=== PATIENT | male | born 1935 | race Asian ===

== ENCOUNTER 2017-10-01 16:32 | Inpatient (IN) | payer OTHER, MEDICAID ==
[2017-10-01] MEDS ORDERED: ASPIRIN 81 MG CHEWABLE TAB PO ONE (16:54)
[2017-10-01] MEDS ORDERED: NITROGLYCERIN 0.4 MG BTL SL PRN (16:54)
[2017-10-01] MEDS ORDERED: FUROSEMIDE 40 MG/4 ML VIAL IVP ONE (16:55)
--- NOTE | 2017-10-01 16:57 | EDPHY ---
H & P Stated Complaint: PT. SOB x2 days per son. Exertional dyspnea,increased edema to ft Time Seen by Provider: 10/01/17 16:48 HPI/ROS: CHIEF COMPLAINT: Shortness of breath HISTORY OF PRESENT ILLNESS: The patient is an 82-year-old man who comes to the emergency department complaining of increasing shortness of breath over the last 3 days as well as leg swelling. No fever. No cough. He has a history of 3 vessel CABG 4 years ago and was recently started on Lasix 120 mg per day by his primary for leg swelling. He also has a history of renal insufficiency and diabetes. He is not on a blood thinner. No history of pulmonary disease. He states his breathing is worse when he lays flat. He is saturating 96% on room air. REVIEW OF SYSTEMS: Constitutional: denies: chills, fever, recent illness, recent injury EENTM: denies: blurred vision, double vision, nose congestion Respiratory: See HPI denies: cough Cardiac: denies: chest pain, irregular heart rate, lightheadedness, palpitations Gastrointestinal/Abdominal: denies: abdominal pain, diarrhea, nausea, vomiting, blood streaked stools Genitourinary: denies: dysuria, frequency, hematuria, pain Musculoskeletal: denies: joint pain, muscle pain Skin: denies: lesions, rash, jaundice, bruising Neurological: denies: headache, numbness, paresthesia, tingling, dizziness, weakness Hematologic/Lymphatic: denies: blood clots, easy bleeding, easy bruising Immunologic/allergic: denies: HIV/AIDS, transplant EXAM: GENERAL: Well-appearing, well-nourished and in no acute distress. HEAD: Atraumatic, normocephalic. EYES: Pupils equal round and reactive to light, extraocular movements intact, sclera anicteric, conjunctiva are normal. ENT: TMs normal, nares patent, oropharynx clear without exudates. Moist mucous membranes. NECK: Normal range of motion, supple without lymphadenopathy or JVD. LUNGS: Mild crackles of both bases. HEART: Regular rate and rhythm without murmurs, rubs or gallops. ABDOMEN: Soft, nontender, normoactive bowel sounds. No guarding, no rebound. No masses appreciated. BACK: No CVA tenderness, no spinal tenderness, step-offs or deformities EXTREMITIES: Normal range of motion, no pitting or edema. No clubbing or cyanosis. NEUROLOGICAL: Cranial nerves II through XII grossly intact. Normal speech, normal gait. 5/5 strength, normal movement in all extremities, normal sensation PSYCH: Normal mood, normal affect. SKIN: Warm, dry, normal turgor, no visible rashes or lesions. Source: Patient Exam Limitations: Language barrier (Son interpreting) - Medical/Surgical History Hx Asthma: Yes Hx Chronic Respiratory Disease: No Hx Diabetes: Yes Hx Cardiac Disease: Yes Hx Renal Disease: Yes Hx Cirrhosis: No Hx Alcoholism: No Hx HIV/AIDS: No Hx Splenectomy or Spleen Trauma: No Other PMH: DM2, asthma, kidney decline, htn, hyperlipidemia. CABG - Family History Significant Family History: No pertinent family hx - Social History Smoking Status: Former smoker Alcohol Use: None Constitutional: Initial Vital Signs Temperature (C) 36.7 C 10/01/17 16:41 Heart Rate 73 10/01/17 16:41 Respiratory Rate 24 H 10/01/17 16:41 Blood Pressure 157/85 H 10/01/17 16:41 O2 Sat (%) 96 10/01/17 16:41 O2 Delivery Mode Nasal Cannula O2 (L/minute) 2 Allergies/Adverse Reactions: No Known Allergies Allergy (Verified 10/01/17 16:39) Home Medications: Medication Instructions Recorded amLODIPine BESYLATE [Norvasc 5 mg 5 mg PO BID 12/05/15 (*)] Allopurinol [Allopurinol 100 MG 100 mg PO DAILY 10/01/17 (*)] Furosemide [Lasix 40 MG (*)] 40 mg PO DAILY 10/01/17 Insulin NPH Human Isophane 10 unit SQ DAILY@18 10/01/17 [Humulin N] Insulin NPH Human Isophane 15 unit SQ BID@08,12 10/01/17 [Humulin N] Metoprolol Tartrate [Lopressor 25 25 mg PO BID 10/01/17 mg (*)] glipiZIDE [Glucotrol] 5 mg PO BID 10/01/17 Medical Decision Making - Diagnostics EKG Interpretation: An EKG obtained and was read and documented in trace view. Please see trace view for full reading and report. Sinus rhythm, no acute ischemic changes Imaging Results: Imaging Impressions Chest X-Ray 10/01/17 16:54 Impression: 1. Findings suggestive of mild CHF. Imaging: Discussed imaging studies w/ house calls nurse practitioner Radiologist ED Course/Re-evaluation: We discussed the test results. The patient is feeling better after Lasix and nitroglycerin. His vital signs remained stable. Will admit to the hospital service. Discussed the case with Dr. Jewel Ha who accepted. Differential Diagnosis: Partial list of the Differential diagnosis considered include but were not limited to; CHF, pneumonia and although unlikely based on the history and physical exam, I also considered acute coronary disease, dissection, aneurysm. Critical Care Time: Critical care time spent by me, Dr. Savage exclusive with this patient was 45 minutes, exclusive of the PA time exclusive of procedures. The organ system that was at risk was cardiovascular and I gave medications, diagnosis, treatment and admission to prevent worsening of the patient's condition - Data Points Laboratory Results: Laboratory Results 10/01/17 17:50 10/01/17 17:50 10/01/17 10/01/17 10/01/17 17:50 17:50 17:50 WBC 7.43 10^3/uL 10^3/uL (3.80-9.50) RBC 3.70 10^6/uL L 10^6/uL (4.40-6.38) Hgb 10.9 g/dL L g/dL (13.7-17.5) Hct 32.5 % L % (40.0-51.0) MCV 87.8 fL fL (81.5-99.8) MCH 29.5 pg pg (27.9-34.1) MCHC 33.5 g/dL g/dL (32.4-36.7) RDW 14.0 % % (11.5-15.2) Plt Count 141 10^3/uL L 10^3/uL (150-400) MPV 10.3 fL fL (8.7-11.7) Neut % (Auto) 74.0 % % (39.3-74.2) Lymph % (Auto) 9.2 % L % (15.0-45.0) [place] % (Auto) 12.7 % % (4.5-13.0) Eos % (Auto) 3.2 % % (0.6-7.6) Baso % (Auto) 0.4 % % (0.3-1.7) Nucleat RBC Rel Count 0.0 % % (0.0-0.2) Absolute Neuts (auto) 5.50 10^3/uL 10^3/uL (1.70-6.50) Absolute Lymphs (auto) 0.68 10^3/uL L 10^3/uL (1.00-3.00) Absolute Monos (auto) 0.94 10^3/uL H 10^3/uL (0.30-0.80) Absolute Eos (auto) 0.24 10^3/uL 10^3/uL (0.03-0.40) Absolute Basos (auto) 0.03 10^3/uL 10^3/uL (0.02-0.10) Absolute Nucleated RBC 0.00 10^3/uL 10^3/uL (0-0.01) Immature Gran % 0.5 % % (0.0-1.1) Immature Gran # 0.04 10^3/uL 10^3/uL (0.00-0.10) PT 14.4 SEC SEC (12.0-15.0) INR 1.13 (0.83-1.16) APTT 37.2 SEC SEC (23.0-38.0) Sodium 136 mEq/L mEq/L (135-145) Potassium 5.1 mEq/L mEq/L (3.5-5.2) Chloride 102 mEq/L mEq/L (97-110) Carbon Dioxide 20 mEq/l L mEq/l (22-31) Anion Gap 14 mEq/L mEq/L (8-16) BUN 74 mg/dL H mg/dL (7-23) Creatinine 4.3 mg/dL H mg/dL (0.7-1.3) Estimated GFR 13 Glucose 126 mg/dL H mg/dL (70-100) Calcium 8.8 mg/dL mg/dL (8.5-10.4) Total Bilirubin 0.9 mg/dL mg/dL (0.1-1.4) Conjugated Bilirubin 0.6 mg/dL H mg/dL (0.0-0.5) Unconjugated Bilirubin 0.3 mg/dL mg/dL (0.0-1.1) AST 31 IU/L IU/L (17-59) ALT 40 IU/L IU/L (21-72) Alkaline Phosphatase 141 IU/L H IU/L (38-126) Troponin I 0.097 ng/mL H ng/mL (0.000-0.034) NT-Pro-B Natriuret Pep 6380 pg/mL H pg/mL (0-450) Total Protein 6.8 g/dL g/dL (6.3-8.2) Albumin 3.5 g/dL g/dL (3.5-5.0) Medications Given: Nitroglycerin (Nitrostat) 0.4 mg SL Q5M PRN PRN Reason: Chest Pain Last Admin: 10/01/17 18:06 Dose: 0.4 mg Discontinued Medications Aspirin (Aspirin) 324 mg PO EDNOW ONE Stop: 10/01/17 16:55 Last Admin: 10/01/17 17:10 Dose: 324 mg Furosemide (Lasix Injection) 40 mg IVP EDNOW ONE Stop: 10/01/17 16:56 Last Admin: 10/01/17 17:48 Dose: 40 mg Departure - Departure Disposition: [facility] Acute Clinical Impression: Pulmonary edema Condition: Fair
--- NOTE | 2017-10-01 17:00 | CPEKG ---
Heart Rate: 74 RR Interval: 811 P-R Interval: 184 QRSD Interval: 84 QT Interval: 412 QTC Interval: 457 P Raven: 60 QRS Raven: 49 T Wave Raven: 94 EKG Severity - ABNORMAL ECG - EKG Impression: SINUS RHYTHM EKG Impression: BORDERLINE R WAVE PROGRESSION, ANTERIOR LEADS EKG Impression: NONSPECIFIC T ABNORMALITIES, ANT-LAT LEADS Electronically Signed By: August Savage 01-Oct-2017 17:29:41
[2017-10-01 18:01] LABS: PLATELET COUNT 141 10^3/uL (150-400)
[2017-10-01 18:16] LABS: INR 1.13 (0.83-1.16); PROTIME(PATIENT) 14.4 SEC (12.0-15.0)
[2017-10-01] MEDS ORDERED: ONDANSETRON DISINTEGRATING 4 MG TAB PO PRN (22:26)
[2017-10-01] MEDS ORDERED: ONDANSETRON 4 MG/2 ML VIAL IVP PRN (22:26)
[2017-10-01] MEDS ORDERED: ACETAMINOPHEN 325 MG TAB PO PRN (22:26)
--- NOTE | 2017-10-01 23:17 | PDGENHP ---
History and Physical - Chief Complaint Shortness of breath - History of Present Illness 82 yo M w/ advanced CKD, CAD s/p CABG, dCHF, and HTN presents with shortness of breath. Turkish translation was provided by daughter, who refused inspector bicycle services. Patient has been experiencing labored breathing for 2-3 days. He also complains of mild leg swelling. He had a fistula procedure last week and since has had a slight rise in his creatinine, possibly due to JEWELS. Due to this the patient stopped taking his Lasix for the last week. [place] [facility] [place] with this feels quite improved after 900 mL urine output over the last few hours. He denies infectious symptoms. History Information - Allergies/Home Medication List Allergies/Adverse Reactions: No Known Allergies Allergy (Verified 10/01/17 16:39) Home Medications: amLODIPine BESYLATE [Norvasc 5 mg (*)] 5 mg PO BID 12/05/15 [Last Taken 09:00] Allopurinol [Allopurinol 100 MG (*)] 100 mg PO DAILY 10/01/17 [Last Taken ] Furosemide [Lasix 40 MG (*)] 40 mg PO DAILY 10/01/17 [Last Taken 09/24/17] Insulin NPH Human Isophane [Humulin N] 10 unit SQ DAILY@18 10/01/17 [Last Taken 09/30/17 18:00] Insulin NPH Human Isophane [Humulin N] 15 unit SQ BID@08,12 10/01/17 [Last Taken 10/01/17 12:00] Metoprolol Tartrate [Lopressor 25 mg (*)] 25 mg PO BID 10/01/17 [Last Taken 09:00] glipiZIDE [Glucotrol] 5 mg PO BID 10/01/17 [Last Taken 09/27/17] I have personally reviewed and updated: family history, medical history - Past Medical History coronary artery disease, hypertension Additional medical history: CKD, Stage 4-5 - Surgical History Reports: coronary bypass surgery - Family History Additional family history: Deny family hx of cardiovascular disease - Social History Smoking Status: Former smoker Alcohol Use: None Review of Systems Review of Systems: ROS: 10pt was reviewed & negative except for what was stated in HPI & below Physical Exam Physical Exam: Temp Pulse Resp BP Pulse Ox 36.5 C 69 22 H 150/63 H 95 10/01/17 21:18 10/01/17 21:18 10/01/17 21:18 10/01/17 21:18 10/01/17 21:18 O2 (L/minute) 2 Constitutional: no apparent distress, appears nourished Eyes: PERRL, EOMI Ears, Nose, Mouth, Throat: moist mucous membranes, no oral mucosal ulcers Cardiovascular: regular rate and rhythym, systolic murmur, JVD (7 cm above clavicle sitting upright), edema (1+ b/l XANDER) Respiratory: no respiratory distress, inspiratory crackles Gastrointestinal: normoactive bowel sounds, soft, non-tender abdomen Skin: warm, normal color Musculoskeletal: full muscle strength, no muscle tenderness Neurologic: AAOx3, CN II-XII Intact Psychiatric: interacting appropriately, not anxious Lab Data & Imaging Review 10/01/17 17:50 10/01/17 17:50 WBC 7.43 10^3/uL (3.80-9.50) 10/01/17 17:50 RBC 3.70 10^6/uL (4.40-6.38) L 10/01/17 17:50 Hgb 10.9 g/dL (13.7-17.5) L 10/01/17 17:50 Hct 32.5 % (40.0-51.0) L 10/01/17 17:50 MCV 87.8 fL (81.5-99.8) 10/01/17 17:50 MCH 29.5 pg (27.9-34.1) 10/01/17 17:50 MCHC 33.5 g/dL (32.4-36.7) 10/01/17 17:50 RDW 14.0 % (11.5-15.2) 10/01/17 17:50 Plt Count 141 10^3/uL (150-400) L 10/01/17 17:50 MPV 10.3 fL (8.7-11.7) 10/01/17 17:50 Neut % (Auto) 74.0 % (39.3-74.2) 10/01/17 17:50 Lymph % (Auto) 9.2 % (15.0-45.0) L 10/01/17 17:50 [place] % (Auto) 12.7 % (4.5-13.0) 10/01/17 17:50 Eos % (Auto) 3.2 % (0.6-7.6) 10/01/17 17:50 Baso % (Auto) 0.4 % (0.3-1.7) 10/01/17 17:50 Nucleat RBC Rel Count 0.0 % (0.0-0.2) 10/01/17 17:50 Absolute Neuts (auto) 5.50 10^3/uL (1.70-6.50) 10/01/17 17:50 Absolute Lymphs (auto) 0.68 10^3/uL (1.00-3.00) L 10/01/17 17:50 Absolute Monos (auto) 0.94 10^3/uL (0.30-0.80) H 10/01/17 17:50 Absolute Eos (auto) 0.24 10^3/uL (0.03-0.40) 10/01/17 17:50 Absolute Basos (auto) 0.03 10^3/uL (0.02-0.10) 10/01/17 17:50 Absolute Nucleated RBC 0.00 10^3/uL (0-0.01) 10/01/17 17:50 Immature Gran % 0.5 % (0.0-1.1) 10/01/17 17:50 Immature Gran # 0.04 10^3/uL (0.00-0.10) 10/01/17 17:50 PT 14.4 SEC (12.0-15.0) 10/01/17 17:50 INR 1.13 (0.83-1.16) 10/01/17 17:50 APTT 37.2 SEC (23.0-38.0) 10/01/17 17:50 Sodium 136 mEq/L (135-145) 10/01/17 17:50 Potassium 5.1 mEq/L (3.5-5.2) 10/01/17 17:50 Chloride 102 mEq/L (97-110) 10/01/17 17:50 Carbon Dioxide 20 mEq/l (22-31) L 10/01/17 17:50 Anion Gap 14 mEq/L (8-16) 10/01/17 17:50 BUN 74 mg/dL (7-23) H 10/01/17 17:50 Creatinine 4.3 mg/dL (0.7-1.3) H 10/01/17 17:50 Estimated GFR 13 10/01/17 17:50 Glucose 126 mg/dL (70-100) H 10/01/17 17:50 Calcium 8.8 mg/dL (8.5-10.4) 10/01/17 17:50 Total Bilirubin 0.9 mg/dL (0.1-1.4) 10/01/17 17:50 Conjugated Bilirubin 0.6 mg/dL (0.0-0.5) H 10/01/17 17:50 Unconjugated Bilirubin 0.3 mg/dL (0.0-1.1) 10/01/17 17:50 AST 31 IU/L (17-59) 10/01/17 17:50 ALT 40 IU/L (21-72) 10/01/17 17:50 Alkaline Phosphatase 141 IU/L (38-126) H 10/01/17 17:50 Troponin I 0.097 ng/mL (0.000-0.034) H 10/01/17 17:50 NT-Pro-B Natriuret Pep 6380 pg/mL (0-450) H 10/01/17 17:50 Total Protein 6.8 g/dL (6.3-8.2) 10/01/17 17:50 Albumin 3.5 g/dL (3.5-5.0) 10/01/17 17:50 Imaging Review: Imaging Impressions Chest X-Ray 10/01/17 16:54 Impression: 1. Findings suggestive of mild CHF. Visualized and Interpreted EKG results: Yes EKG Interpretation: Positive for: normal sinsus rhythm, NS ST wave abnormalities (V1-2), other (Poor R wave progression) Assessment & Plan Assessment: 82 yo M w/ advanced CKD, CAD s/p CABG, dCHF, and HTN presents with mild CHF exacerbation. Plan: 1. Chronic diastolic HF with acute exacerbation - Patient stopped taking his Lasix 1 week ago due to concern about rising creatinine. Since, he has experienced progressive SOB and lower extremity edema. Overall this appears mild as patient is saturating in the low 90's on RA and now only in mild respiratory distress. - Lasix 40 mg IV BID (Had good response to this dose) - Daily weights, monitor I/Os - Continue other home meds 2. CKD, Stage IV-V - Creatinine 4.3 today, which represents modest rise from prior values but minimal GFR change. Patient is undergoing planning for HD and underwent a fistula procedure last week. - Monitor BMP - Renally dose medications, avoid nephrotoxins 3. CAD - S/p CABG; denies chest pain. Continue home meds. 4. HTN - Continue home meds. Diet - Renal Code - Full Ppx - SQH Dispo - Admit under inpatient status as I anticipate patient will require >2 MN' s to reach euvolemia.
[2017-10-01] MEDS ORDERED: D50W 25 GM/50 ML VIAL IVP PRN (23:26)
[2017-10-02] MEDS: METOPROLOL TARTRATE 25 MG TAB PO SCH ×3 (00:17→20:25)
[2017-10-02] MEDS: INSULIN NPH HUMAN 100 UNITS/ML SYR SC SCH ×4 (00:22→17:42)
[2017-10-02] MEDS: ALBUTEROL 3 ML DEYVIAL IH PRN ×2 (00:25→16:53)
[2017-10-02] MEDS: amLODIPine BESYLATE 5 MG TAB PO SCH ×3 (02:07→20:25)
[2017-10-02 04:21] LABS: PLATELET COUNT 127 10^3/uL (150-400)
[2017-10-02] MEDS: HEPARIN 5,000 UNIT/0.5 ML SYR SC SCH ×4 (06:26→20:25)
[2017-10-02] MEDS: ALLOPURINOL 100 MG TAB PO SCH (08:46)
[2017-10-02] MEDS: FUROSEMIDE 40 MG/4 ML VIAL IVP SCH ×3 (08:46→15:48)
--- NOTE | 2017-10-02 13:43 | PDMN ---
Medical Necessity Medical necessity: est los>2mn for acute on chronic diastolic heart failure, w/ progressive SOB and LE edema; admit for IV Lasix, I&O, daily wts; comorbid CKD, CAD, HTN; per order and H&P 10/01/17
--- NOTE | 2017-10-02 14:54 | HOSPPROG ---
Hospitalist Progress Note Assessment/Plan: # acute hypoxic resp failure d/t volume overload # volume overload - had stopped home lasix - cont with lasix IV today, check BMP tomorrow # elev trop - chronic # CKD stage 4-5 - SCr up from previous - has fistula, recent fistulogram # CAD s/p CABG - no CP - cont BB # htn - cont norvasc, metop # DM - glucs ok; cont NPH Subjective: feels better but still very SOB with ambulation Objective: Vital Signs Temp Pulse Resp BP Pulse Ox 37.2 C 69 16 150/70 H 96 10/02/17 12:00 10/02/17 12:00 10/02/17 12:00 10/02/17 12:00 10/02/17 14:30 Laboratory Results 10/02/17 03:42 10/02/17 03:42 10/01/17 10/02/17 10/03/17 05:59 05:59 05:59 Intake Total 750 Output Total 2550 Balance -1800 PT 14.4 SEC (12.0-15.0) 10/01/17 17:50 INR 1.13 (0.83-1.16) 10/01/17 17:50 chart reviewed CXR personally reviewed - Physical Exam Constitutional: no apparent distress, appears nourished Cardiovascular: regular rate and rhythym, no murmur, rub, or gallop Respiratory: inspiratory crackles (bilat bases), respiratory distress (mild) Gastrointestinal: normoactive bowel sounds, soft, non-tender abdomen, no palpable masses ICD10 Worksheet Patient Problems: Problems Problem Status Onset CHF with cardiomyopathy Acute Abnormal ECG Acute Hypertension Acute Hyperlipidemia Acute Chronic Disease [facility]/Transitional Care Acute Cellulitis of left forearm Acute Pulmonary edema Acute
--- NOTE | 2017-10-02 15:27 | ASMTCASEMG ---
Living Arrangements What is your living Answers: Alone arrangement? Who do you live with? Type Of Residence What kind of residence do Answers: Apartment you live in? Discharge Plan Comments Coordination Status Comments Notes: Pt is a 82 y/o man admitted for CHF exacerbation. CM spoke to Dr. Gardiner about this case. CM made two follow up appointments for pt w/ Dr. Olivia. CM inputted the appointments into pts d/c section of [facility]. Pt will most likely d/c independent when medically stable. No therapies ordered at this time. CM available for changes. Plan: Independent Date Signed: 10/02/2017 03:26 PM Electronically Signed By:MARIA DOLORES Lora
[2017-10-02] MEDS: TROLAMINE SALICYLATE 85 GM CRTUBE TP SCH (21:38)
[2017-10-03] MEDS: HEPARIN 5,000 UNIT/0.5 ML SYR SC SCH ×2 (06:30→15:08)
[2017-10-03] MEDS: FUROSEMIDE 40 MG/4 ML VIAL IVP SCH (09:15)
[2017-10-03] MEDS: TROLAMINE SALICYLATE 85 GM CRTUBE TP SCH (09:16)
[2017-10-03] MEDS: METOPROLOL TARTRATE 25 MG TAB PO SCH (09:16)
[2017-10-03] MEDS: amLODIPine BESYLATE 5 MG TAB PO SCH (09:16)
[2017-10-03] MEDS: ALLOPURINOL 100 MG TAB PO SCH (09:16)
[2017-10-03] MEDS: INSULIN NPH HUMAN 100 UNITS/ML SYR SC SCH ×2 (09:23→13:45)
[2017-10-03 11:30] VITALS: BP 142/54
--- NOTE | 2017-10-03 12:52 | GDS ---
[f rep st] DISCHARGE SUMMARY ALL DIAGNOSES: 1. Acute hypoxic respiratory failure. 2. Volume overload, likely acute diastolic congestive heart failure exacerbation. 3. Chronic kidney disease stage 4 to 5. 4. Chronic elevated troponin. 5. Coronary artery disease. 6. Hypertension. 7. Diabetes mellitus. HOSPITAL COURSE: An 82-year-old man admitted with shortness of breath. Chest x-ray showed pulmonary edema. His history is notable for having CKD 4 to 5, followed closely by Nephrology. He had a fist yarelis placed about a year and a half ago, but has not started dialysis yet. [facility]. He was concerned that his creatinine has slowly risen after this, and he was concerned that his furosemide was contributing so he held it. This is likely the etiology of hi s dyspnea. He has been diuresed effectively here. His weight has gone from 75.8 kg down to 72.8 kg on the day of discharge. He is breathing comfortably on room air with ambulation. Discussed with Dr Fritz Olivia as well as Dr. Reich. We will plan to have him dry renal function panel [address] harge. Dr. Olivia will follow up on this. He has an appointment to see Dr. Olivia on October 13, at 3:30 . DISPOSITION: He is discharged in stable condition to home. BILLING: I spent more than 30 minutes on the day of discharge coordinating care. /[id number]/MODL
--- NOTE | 2017-10-03 13:06 | ASMTLACE ---
LACE Length of stay for Answers: 2 days current admission Acuity / Level of Answers: Yes Care: Did the patient have an inpatient admission? Comorbidities - select Answers: Coronary Artery Disease all that apply Diabetes (uncontrolled or controlled) Other Notes: CABG, HTN # of Emergency department Answers: 1-2 visits in the last 6 months Score: 10 Date Signed: 10/03/2017 01:05 PM Electronically Signed By:Hermila Webb RN
--- NOTE | 2017-10-03 15:32 | ASDISCHSUM ---
Discharge Information Plan Status:Home with No Needs Medically Cleared to Leave:10/03/2017 Discharge Date:10/03/2017 03:13 PM CM D/C Disposition:Home, Routine, Self-Care ADT D/C Disposition:Home, Routine, Self-Care Projected Discharge Date:10/03/2017 03:13 PM Transportation at D/C:Family Discharge Delay Reason: Follow-Up Date:10/03/2017 03:13 PM Discharge Slot:2 - 12:01 pm - 18:00 pm Final Diagnosis:acute hypoxic respiratory failure, likely CHF exacerbation, volume overload, chronic kidney disease, chronic elevated troponin, CAD, HTN, DM Placement Information Patient Contact Information Contact Name:PRISCILLA Relationship:Son Address:[address] City:[place] Phone: [facility]/Zip Code:[place] [address] Email: Financial Information Financial Class:Medicare Primary Plan Desc:MEDICARE IP PART B ONLY Primary Plan Number:[id number] Secondary Plan Desc:[place] Secondary Plan Number:[id number] Assessment Information LACE LACE Length of stay for Answers: 2 days current admission Acuity / Level of Answers: Yes Care: Did the patient have an inpatient admission? Comorbidities - select Answers: Coronary Artery Disease all that apply Diabetes (uncontrolled or controlled) Other Notes: CABG, HTN # of Emergency department Answers: 1-2 visits in the last 6 months Score: 10 Date Signed: 10/03/2017 01:05 PM Electronically Signed By:Hermila Webb RN [facility] Initial CM Assessment Living Arrangements What is your living Answers: Alone arrangement? Who do you live with? Type Of Residence What kind of residence do Answers: Apartment you live in? Discharge Plan Comments Coordination Status Comments Notes: Pt is a 82 y/o man admitted for CHF exacerbation. CM spoke to Dr. Gardiner about this case. CM made two follow up appointments for pt w/ Dr. Olivia. CM inputted the appointments into pts d/c section of [facility]. Pt will most likely d/c independent when medically stable. No therapies ordered at this time. CM available for changes. Plan: Independent Date Signed: 10/02/2017 03:26 PM Electronically Signed By:MARIA DOLORES Lora Case Management Discharge Plan Note Case Management Discharge Discharge Order Complete? Answers: Yes Followup Appointment 10/13/2017 03:30 PM Patient to Obtain Answers: via Family Medications Transportation Arranged Answers: Family/Friends EMTALA Complete Answers: No Notes: N/A Case Management Transport Answers: No Notes: N/A Form Complete Faxed Final Orders Answers: No Notes: N/A Discharge Comments Notes: Reviewed chart, spoke with KAYLA Alexis and Dr. Gardiner regarding discharge plan of care, pt's progress. Pt to discharge home independently with family support and no identified needs. IM signed with pt's dghtr's assistance. Pt to follow up as directed. CM available for any further issues or concerns. Disposition: Home independently with family support Date Signed: 10/03/2017 03:31 PM Electronically Signed By:Hermila Webb RN Intervention Information Intervention Type:*IM-Signed Date of Service:10/03/2017 03:30 PM Patient Type:Inpatient Staff Member:KAYLA Webb Taylor Hours: Discipline: Severity: Comment:
== END 2017-10-03 15:13 | disposition home or self-care (01) | DRG 291 ==
LOC: CED 16:32 → CEDHOLD 18:12 → OBSVTOIN 19:35 → F2W 21:47
PROVIDERS: ADMIT Internal Medicine; ATTEND Internal Medicine
DX: I13.2 Hypertensive heart and chronic kidney disease with heart failure and with stage 5 chronic kidney disease, or end stage renal disease (principal); I50.33 Acute on chronic diastolic (congestive) heart failure; J96.01 Acute respiratory failure with hypoxia; N18.5 Chronic kidney disease, stage 5; E11.22 Type 2 diabetes mellitus with diabetic chronic kidney disease; I25.10 Atherosclerotic heart disease of native coronary artery without angina pectoris; E78.5 Hyperlipidemia, unspecified; J45.909 Unspecified asthma, uncomplicated; Z95.1 Presence of aortocoronary bypass graft; Z79.4 Long term (current) use of insulin; Z87.891 Personal history of nicotine dependence
CPT/HCPCS: 71046-PO; 80048-PO; 80076-PO; 83880-PO; 84484-PO; 85025-PO; 85610-PO; 85730-PO; 96374; J1644; J1815; J1940; J7613